=== PATIENT | female | born 1945 | race Caucasian/White ===

== ENCOUNTER → 2017-06-13 | Day surgery (SDC) | payer MEDICARE ==
[2017-06-09 15:58] LABS: BASOPHILS % 0.2 % (0.0-1.0); EOSINOPHILS # (AUTO) 0.2 (0.0-0.4); EOSINOPHILS % 1.5 % (0.0-6.0); HEMOGLOBIN 14.8 g/dL (12.0-16.0); LYMPHOCYTES # (AUTO) 2.6 (1.0-3.2); LYMPHOCYTES % 26.7 % (18.0-39.1); MEAN CORPUSCULAR HEMOGLOBIN 28.4 pg (28-32); MEAN CORPUSCULAR HGB CONC 32.9 g/dL (31-35); MEAN CORPUSCULAR VOLUME 86.4 fL (81-99); MONOCYTES # (AUTO) 0.9 (0.2-0.8); MONOCYTES % 9.6 % (4.4-11.3); NEUTROPHILS % 61.8 % (38.7-80.0); PLATELET COUNT 190 x10e3/uL (140-360); RED BLOOD COUNT 5.21 x10e6/uL (3.6-5.1)
[~2017-06-13] MED LIST: ACIPHEX20 MG PO; ALDACTONE25 MG PO; ASPIR-LOW81 MG PO; ATORVASTATIN CA20 MG PO; BENADRYL25 M1 PO; CARAFATE1 GM/10 ML PO; CLONAZEPAM0.5 MG PO; FENTANYL CITRATE/PF 100MCG/2 ML INJ ONE; GABAPENTIN300 MG PO; GLIPIZIDE5 MG PO; LASIX40 MG PO; LEXAPRO10 MG PO; LOMOTIL TABLET1 EACH PO; METFORMIN HCL1000 M1 PO; MIDAZOLAM HCL 2 MG/2 ML VIAL ONE; NORCO 7.5-3251 EACH PO; PLAVIX75 MG PO; PRILOSEC PO; PROPOFOL IV EMULSION 10 MG/ML 50 ML VIAL ONE; PROZAC40 MG PO; TAMSULOSIN PO; VALACYCLOVIR500 MG PO
--- NOTE | 2017-06-13 13:39 | Operative Report ---
DATE OF PROCEDURE: June 13, 2017 REFERRING PHYSICIAN: Dr. Rama Jung. PROCEDURE PERFORMED: Esophagogastroduodenoscopy with esophageal dilatation and biopsies. INDICATIONS FOR ESOPHAGOGASTRODUODENOSCOPY: Dysphagia, bloating. History of melena. MEDICATION: Patient was done under MAC. Please see anesthesiologist's note. PROCEDURE: With the patient in the left lateral decubitus position, the flexible fiberoptic Olympus gastroscope was introduced into the esophagus under direct visualization without any difficulty. There was some patchy erythema noted in the distal esophagus. There was a mild stricture noted at the GE junction, and that was dilated to a size 52-[place]. The scope was then advanced with ease into the stomach, and mucosa overlying the antrum and the body revealed some diffuse erythema and low-grade to moderate edema, and biopsies were obtained and sent to stain for H. pylori. Pylorus appeared to be of normal contour and shape, was intubated with ease, and the scope was advanced all the way to the 2nd portion of the duodenum. There was a somewhat scalloped fold noted in the proximal 2nd portion that was biopsied to rule out sprue. The mucosa overlying the duodenal bulb grossly appeared to be within normal limits. The scope was then withdrawn back into the stomach and retroflexed, and mucosa overlying the fundus appeared to be within normal limits. An intact Pee fundoplication was also noted. The scope was then straightened out. The stomach was decompressed. The scope was subsequently withdrawn. Patient tolerated procedure well. IMPRESSION: 1. Mild distal esophagitis. 2. Distal esophageal stricture, mild, gastroesophageal junction, dilated to size 52-[place]. 3. Status post fundoplication, intact. 4. Gastritis biopsied. Biopsies sent to stain for H. pylori. 5. Rule out sprue. PLAN: Follow up histology. Increase Prilosec to 40 mg 1 p.o. a.c. b.i.d. Job#: [id number] EV cc:RAMA JUNG MD
== END | disposition home or self-care (01) ==
LOC: OR 11:34
PROVIDERS: ATTEND Internal Medicine Gastroenterology
DX: K22.2 Esophageal obstruction (principal); K29.70 Gastritis, unspecified, without bleeding; K20.9 Esophagitis, unspecified; K21.9 Gastro-esophageal reflux disease without esophagitis; K44.9 Diaphragmatic hernia without obstruction or gangrene; K57.90 Diverticulosis of intestine, part unspecified, without perforation or abscess without bleeding; K58.9 Irritable bowel syndrome, unspecified; K64.8 Other hemorrhoids; R19.7 Diarrhea, unspecified; G47.33 Obstructive sleep apnea (adult) (pediatric); I10 Essential (primary) hypertension; J44.9 Chronic obstructive pulmonary disease, unspecified; E78.5 Hyperlipidemia, unspecified; I69.354 Hemiplegia and hemiparesis following cerebral infarction affecting left non-dominant side; E11.9 Type 2 diabetes mellitus without complications; M19.90 Unspecified osteoarthritis, unspecified site; N39.0 Urinary tract infection, site not specified; F32.9 Major depressive disorder, single episode, unspecified; F41.9 Anxiety disorder, unspecified; Z01.810 Encounter for preprocedural cardiovascular examination; Z01.812 Encounter for preprocedural laboratory examination; Z79.02 Long term (current) use of antithrombotics/antiplatelets; Z79.82 Long term (current) use of aspirin; Z68.35 Body mass index [BMI] 35.0-35.9, adult; Z85.3 Personal history of malignant neoplasm of breast; Z87.891 Personal history of nicotine dependence
CPT/HCPCS: 36415 ×2; 43239; 43450; 82948; 85025; 88305; 88312; 93005; J2250

== ENCOUNTER → 2018-06-02 | Day surgery (SDC) | payer MEDICARE ==
[2018-05-29 11:08] LABS: BASOPHILS % 0.3 % (0.0-1.0); EOSINOPHILS # (AUTO) 0.1 (0.0-0.4); EOSINOPHILS % 2.2 % (0.0-6.0); HEMATOCRIT 42.7 % (34.2-44.1); HEMOGLOBIN 13.7 g/dL (12.0-16.0); LYMPHOCYTES # (AUTO) 1.3 (1.0-3.2); LYMPHOCYTES % 19.6 % (18.0-39.1); MEAN CORPUSCULAR HEMOGLOBIN 27.3 pg (28-32); MEAN CORPUSCULAR HGB CONC 32.1 g/dL (31-35); MEAN CORPUSCULAR VOLUME 85.2 fL (81-99); MONOCYTES # (AUTO) 0.5 (0.2-0.8); MONOCYTES % 8.3 % (4.4-11.3); NEUTROPHILS # (AUTO) 4.5 (2.1-6.9); NEUTROPHILS % 69.4 % (38.7-80.0); PLATELET COUNT 219 x10e3/uL (140-360); RED BLOOD COUNT 5.01 x10e6/uL (3.6-5.1); RED CELL DISTRIBUTION WIDTH 13.1 % (11.7-14.4)
[~2018-06-02] MED LIST changes: +ALIGN4 MG; +ATORVASTATIN; +BUSPAR PO; +CITRICEL; +COLESTIPOL HCL1 GM PO; +MODAFINIL100 MG PO; +TAMSULOSIN HCL0.4 MG
--- OUTSIDE RECORDS SUMMARY | 2018-06-02 06:14 | XMS REPORT | Clinical Summary ---
Author Author [employer] [facility] [employer] Address Unknown Phone Unavailable Care Team Providers Care Sleeve Maker Name Role Phone Asked, No Pcp PCP Unavailable Allergies Comments Active Allergy Reactions Severity Noted Date Codeine Hives Medium 10/21/2016 Penicillins Hives Medium 10/21/2016 Medications End Date Status Medication Sig Dispensed Refills Start Date Active tamsulosin (FLOMAX) 0.4 0 mg capsule,extended 7 release 24hr Active modafinil (PROVIGIL) 200 0 MG tablet 7 Active metFORMIN (GLUCOPHAGE) TK 1 T PO 1 1,000 mg tablet BID WITH 7 MEALS Active meloxicam (MOBIC) 15 mg TK 1 T PO QD 1 tablet 7 Active losartan (COZAAR) 50 MG TK 1 T PO QD 2 tablet 7 Active ketoconazole (NIZORAL) 2 APPLY TO FEET 1 % cream ONCE D 7 Active HYDROMET 5-1.5 mg/5 mL TK 5ML PO Q 6 0 syrup H PRN 7 Active gabapentin (NEURONTIN) TK TWO CS PO 1 300 mg capsule BID 7 Active FLUoxetine (PROzac) 20 MG 0 capsule 7 Active clopidogrel (PLAVIX) 75 TK 1 T PO QD 3 mg tablet 7 Active chlorhexidine (PERIDEX) USE 15 ML PO 0 0.12 % solution UTD. RINSE 7 AND SPIT Active atorvastatin (LIPITOR) 40 0 MG tablet 7 Active Problems Not on file Encounters Care Team Description Date Type Specialty Tyson Padron MD Chest pain, unspecified type (Primary Dx) 04/22/2018 Emergency Emergency Medicine Jennifer Pope MD 03/07/2018 Telephone Ophthalmology after 06/01/2017 Social History Date Tobacco Use Types Packs/Day Years Used Former Smoker Smokeless Tobacco: Never Used Comments: quit 25 years ago Alcohol Use Drinks/Week oz/Week Comments No Sex Assigned at Date Recorded Not on file Industry Job Start Date Occupation Not on file Not on file Not on file Travel End Travel History Travel Start No recent travel history available. Last Filed Vital Signs Time Taken Vital Sign Reading 04/22/2018 11:10 AM [employer] Blood Pressure 156/79 04/22/2018 11:10 AM [employer] Pulse 82 - Temperature - 04/22/2018 11:10 AM [employer] Respiratory Rate 18 04/22/2018 11:10 AM [employer] Oxygen Saturation 95% - Inhaled Oxygen - Concentration - Weight - 04/22/2018 11:10 AM [employer] Height 165.1 cm (5' 5") - Body Mass Index - Plan of Treatment Health Maintenance Due Date Last Done Comments BREAST CANCER SCREENING 01/04/1994 COLON CANCER SCREENING 01/04/1994 SHINGLES VACCINES (1 of 01/04/1994 2) PNEUMOCOCCAL 01/04/2009 POLYSACCHARIDE VACCINE AGE 65 AND OVER INFLUENZA VACCINE 11/16/2017 PNEUMOCOCCAL-13 Completed 10/21/2016 Procedures Comments Procedure Name Priority Date/Time Associated Diagnosis XR CHEST 2 VW STAT 04/22/2018 12:05 PM [employer] ESTIMATED GFR STAT 04/22/2018 11:51 AM [employer] B NATRIURETIC PEPTIDE STAT 04/22/2018 11:51 AM [employer] TROPONIN STAT 04/22/2018 11:51 AM [employer] COMPREHENSIVE METABOLIC STAT 04/22/2018 PANEL 11:51 AM [employer] HC COMPLETE BLD COUNT STAT 04/22/2018 W/AUTO DIFF 11:51 AM [employer] ECG ED PRELIMINARY Routine 04/22/2018 INTERPRETATION 11:41 AM [employer] ECG 12-LEAD STAT 04/22/2018 11:15 AM [employer] after 06/01/2017 Results * XR Chest 2 Vw (04/22/2018 12:05 PM [employer]) Narrative Performed At EXAMINATION:XR CHEST 2 VW [facility] CLINICAL HISTORY:chest pain XR CHEST 2 VWimages are submitted COMPARISON:NONE FINDINGS: The cardiac silhouette is normal in size. The pulmonary vasculature is within normal limits. The lung zones are clear. There is no pleural effusion or pneumothorax. IMPRESSION: 1. There is no acute cardiopulmonary disease. [id number] Procedure Note Hm Interface, Radiology Results Incoming - 04/22/2018 12:14 PM [employer] EXAMINATION: XR CHEST 2 VW CLINICAL HISTORY: chest pain XR CHEST 2 VW images are submitted COMPARISON: NONE FINDINGS: The cardiac silhouette is normal in size. The pulmonary vasculature is within normal limits. The lung zones are clear. There is no pleural effusion or pneumothorax. IMPRESSION: 1. There is no acute cardiopulmonary disease. [id number] Performing Organization Address [facility] Phone Number [facility] [address] [place] [address] * Estimated GFR (04/22/2018 11:51 AM [employer]) Estimated GFR 84 mL/min/1.73 m2 [facility] Comment: HOSPITAL CatergoryUnitsInte rpretation G1 >=90 Normal or high G2 60-89Mildly decreased [id number] Mildly to moderately decreased D0z60-72 Moderately to severely decreased G4 15-29Severely decreased G5 <15Kidney failure The eGFR was calculated using the Chronic Kidney Disease Epidemiology Collaboration (CKD-EPI) equation. Interpretation is based on recommendations of the National Kidney Foundation-Kidney Disease Outcomes Quality Initiative (NKF-KDOQI) published in 2014. Specimen Plasma specimen Performing Organization Address [facility] Phone Number [place] [address] PATHOLOGY AND [facility]OMIC [facility] [address] [place] [address] H[facility]PITAL * Troponin (04/22/2018 11:51 AM [employer]) Troponin <0.30 0.00 - 0.30 ng/mL [facility] Comment: HOSPITAL 0.30 - 1.49 ng/mlMay indicate increased risk of acute coronary syndrome. >=1.5 ng/ml Consistent with acute myocardial infarction. The diagnostic value of a single normal or non-diagnostic result is questionable.Serial samples at 2-6 hour intervals are required to rule out acute myocardial injury. Specimen Plasma specimen Performing Organization Address [facility] Phone Number [facility] OF [address] [place] [id number] PATHOLOGY AND GENOMIC MEDICINE [address] * CBC with platelet and differential (04/22/2018 11:51 AM [employer]) WBC 8.06 4.50 - 11.00 k/uL [facility] RBC 4.75 4.20 - 5.50 m/uL [facility] HGB 13.3 12.0 - 16.0 g/dL [facility] HCT 41.6 37.0 - 47.0 % [facility] MCV 87.6 82.0 - 100.0 fL [facility] MCH 28.0 27.0 - 34.0 pg [facility] MCHC 32.0 31.0 - 37.0 g/dL [facility] RDW - SD 40.8 37.0 - 55.0 fL [facility] MPV 10.4 8.8 - 13.2 fL [facility] Platelet count 206 150 - 400 k/uL [facility] Nucleated RBC 0.00 /100 WBC [facility] Neutrophils 74.2 (H) 39.0 - 69.0 % [facility] Lymphocytes 14.6 (L) 25.0 - 45.0 % [facility] Monocytes 9.3 0.0 - 10.0 % [facility] Eosinophils 1.6 0.0 - 5.0 % [facility] Basophils 0.1 0.0 - 1.0 % [facility] Immature granulocytes 0.2Comment: "Immature 0.0 - 1.0 % [facility] granulocytes" (promyelocytes, HOSPITAL myelocytes, metamyelocytes) Specimen Blood Performing Organization Address City/State/Zipcode Phone Number [facility] [address] [address] PATHOLOGY AND GENOMIC MEDICINE [address] * B natriuretic peptide (04/22/2018 11:51 AM [employer]) BNP 46 0 - 100 pg/mL [facility] Specimen Blood Performing Organization Address City/State/Zipcode Phone Number [facility] [address] [address] PATHOLOGY AND GENOMIC MEDICINE [address] * Comprehensive metabolic panel (04/22/2018 11:51 AM [employer]) Sodium 140 135 - 148 mEq/L [facility] Potassium 3.6 3.5 - 5.0 mEq/L [facility] Chloride 104 98 - 112 mEq/L [facility] CO2 28 24 - 31 mEq/L [facility] Anion gap 8@ANIO 7 - 15 mEq/L [facility] BUN 11 8 - 23 mg/dL [facility] Creatinine 0.71 0.50 - 0.90 mg/dL [facility] Glucose 127 (H) 65 - 99 mg/dL [facility] Calcium 9.2 8.8 - 10.2 mg/dL [facility] Protein 6.5 6.3 - 8.3 g/dL [facility] Comment: HOSPITAL 4.6-7.0 g/dL 1 week 4.4-7.6 g/dL 7 months-1year 5.1-7.3 g/dL 1-2 years5.6-7 .5 g/dL >3 years6.0-8 .0 g/dL 18-150 6.3-8.3 g/dL Albumin 3.3 (L) 3.5 - 5.0 g/dL [facility] A/G ratio 1.0 0.7 - 3.8 [facility] Alkaline phosphatase 92 35 - 104 U/L [facility] AST 13 10 - 35 U/L [facility] ALT 15 5 - 50 U/L [facility] Total bilirubin 0.5 0.0 - 1.2 mg/dL [facility] Specimen Plasma specimen Performing Organization Address City/State/Zipcode Phone Number [facility] [address] [place] [address] PATHOLOGY AND GENOMIC MEDICINE [address] * ECG ED Preliminary Interpretation - Not an Order (04/22/2018 11:41 AM [employer]) Narrative Performed At Tyson Padron MD 04/24/20189:35 PM ECG ED Preliminary Interpretation - Not an Order Performed by: Tyson Padron MD Authorized by: Tyson Padron MD ECG reviewed by ED Physician in the absence of a cartography teacher: yes Interpretation: Interpretation: normal Rate: ECG rate:76 ECG rate assessment: normal Rhythm: Rhythm: sinus rhythm QRS: QRS axis:Left * ECG 12 lead (04/22/2018 11:15 AM [employer]) Ventricular rate 76 [facility] Atrial rate 76 [facility] WA interval 140 [facility] QRSD interval 78 [facility] QT interval 392 [facility] QTC interval 441 [facility] P axis 1 41 [facility] QRS axis 1 -49 [facility] T wave axis 64 [facility] EKG impression Normal sinus rhythm-Possible [facility] Left atrial enlargement-Left axis deviation-Abnormal ECG-No previous ECGs available- Narrative Performed At Performing Organization Address City/State/Zipcode Phone Number [facility] [address] [place] [address] after 06/01/2017 Insurance Payer Benefit Subscriber ID Type Phone Address Plan / Group MEDICARE MEDICARE xxxxxxxxxx Medicare [place], [place] PART A AND B AARP AARP xxxxxxxxxxx Commercial SUPPLEMENT Advance Directives Patient has advance care planning documents on file. For more information, hilary e contact: Adeel Garcia [address] [place] [address]
[2018-06-02 09:30] VITALS: BP 137/68
--- NOTE | 2018-06-02 09:43 | Operative Report ---
DATE OF PROCEDURE: June 02, 2018 PROCEDURE PERFORMED: Esophagogastroduodenoscopy with biopsy and esophageal dilatation. REFERRING PHYSICIAN: Dr. Rama Jung INDICATIONS FOR PROCEDURE: Dysphagia. MEDICATION: Patient was done under MAC. Please see anesthesiologist note. PROCEDURE IN DETAIL: With the patient in left lateral decubitus position, flexible fiberoptic Olympus gastroscope was introduced into the esophagus under direct visualization without any difficulty. There was some patchy erythema noted in distal esophagus. A mild stricture was noted at the GE junction that was dilated to size 52-[place]. The scope was then advanced with ease into the stomach. Mucosa overlying the antrum and the body revealed some patchy areas of erythema. The pylorus was of normal contour and shape, it was intubated with ease, and the scope was advanced all the way to the second portion of the duodenum. The scope was then withdrawn slowly. A minute nodule was noted in the proximal second portion that was biopsied. The scope was then withdrawn back into the stomach and retroflexed, and an intact Pee fundoplication was noted. The scope was then straightened out. It was subsequently withdrawn. Patient tolerated the procedure well. IMPRESSION: 1. Mild distal esophagitis. 2. Mild stricture, gastroesophageal junction, dilated to size 52-[place]. 3. Status post Pee fundoplication, intact. 4. Gastritis, mild, patchy. 5. Minute nodule, proximal second portion, biopsied. PLAN: Follow up histology. Continue Prilosec 40 mg 1 p.o. a.c. b.i.d. Job#: [id number] cc:RAMA JUNG MD
== END | disposition home or self-care (01) ==
LOC: OR 06:10
PROVIDERS: ATTEND Internal Medicine Gastroenterology
DX: K22.2 Esophageal obstruction (principal); K29.70 Gastritis, unspecified, without bleeding; K20.9 Esophagitis, unspecified; K31.89 Other diseases of stomach and duodenum; K25.9 Gastric ulcer, unspecified as acute or chronic, without hemorrhage or perforation; K44.9 Diaphragmatic hernia without obstruction or gangrene; K21.9 Gastro-esophageal reflux disease without esophagitis; K58.8 Other irritable bowel syndrome; Z98.890 Other specified postprocedural states; E11.9 Type 2 diabetes mellitus without complications; H91.90 Unspecified hearing loss, unspecified ear; I69.398 Other sequelae of cerebral infarction; R53.1 Weakness; M19.90 Unspecified osteoarthritis, unspecified site; G47.33 Obstructive sleep apnea (adult) (pediatric); J44.9 Chronic obstructive pulmonary disease, unspecified; I10 Essential (primary) hypertension; F32.9 Major depressive disorder, single episode, unspecified; F41.9 Anxiety disorder, unspecified; Z88.1 Allergy status to other antibiotic agents; Z01.812 Encounter for preprocedural laboratory examination; Z79.82 Long term (current) use of aspirin; Z79.02 Long term (current) use of antithrombotics/antiplatelets; Z68.32 Body mass index [BMI] 32.0-32.9, adult; Z86.718 Personal history of other venous thrombosis and embolism; Z85.3 Personal history of malignant neoplasm of breast; Z87.891 Personal history of nicotine dependence
CPT/HCPCS: 36415 ×2; 43239; 43450; 82948; 85025; 88305; J2250; J2704